=== PATIENT | female | born 1980 | race American Indian/Alaskan Native ===

== ENCOUNTER 2024-11-25 20:27 | Emergency (ER) | payer BC, OTHER ==
[~2024-11-25] VITALS: Ht 170.2 cm; Wt 139.0 kg
[~2024-11-25 20:27] MED LIST: ALBUTEROL2.5 MG/3 M INH; DOXYCYCLINE HY100 MG PO; GLIPIZIDE XL10 MG PO; HYDROCODON-ACE1 EA10 PO; IPRATROPIUM BRO15 ML NAS; LANTUS SOL100 UNIT/1 SUB-Q; LISINOPRIL10 MG PO; METFORMIN HCL1000 MG PO; MONTELUKAST SOD10 MG PO; MOUNJARO5 MG/0.5 M; ONDANSETRON ODT8 MG PO; PNV PRENATAL P1 EACH PO; PREDNISONE20 MG PO; ROSUVASTATIN CAL5 MG PO; TRIAMCINOLONE A15 GM TOP
[2024-11-25] MEDS ORDERED: methylPREDNISolone 4 MG HOME.PACK PO ONE (21:15)
[2024-11-25 21:25] VITALS: BP 142/85
== END 2024-11-25 21:25 | disposition home or self-care (01) ==
LOC: ED 20:27
DX: J45.901 Unspecified asthma with (acute) exacerbation (principal); I10 Essential (primary) hypertension; E11.9 Type 2 diabetes mellitus without complications; Z87.891 Personal history of nicotine dependence; Z88.0 Allergy status to penicillin; Z88.5 Allergy status to narcotic agent; Z88.1 Allergy status to other antibiotic agents
CPT/HCPCS: 99284